=== PATIENT | male | born 1975 | race Hispanic/Latino ===

== ENCOUNTER 2020-07-24 14:59 | Outpatient (CLI) | payer OTHER | END 2020-07-24 15:00 | disposition home or self-care (01) | LOC: CT 14:59 | PROVIDERS: ATTEND Nurse Practitioner Family | DX: H53.9 Unspecified visual disturbance (principal); R51.9 Headache, unspecified; W19.XXXA Unspecified fall, initial encounter | CPT/HCPCS: 70450 ==

== ENCOUNTER 2025-04-20 17:17 | Emergency (ER) | payer OTHER ==
[2025-04-20] MEDS ORDERED: HYDROmorphone 0.5 MG/0.5 ML SYRINGE ONE ×2 (19:32→22:28)
== END 2025-04-20 23:02 | disposition short-term general hospital (02) ==
LOC: ERS 17:17
DX: S62.512B Displaced fracture of proximal phalanx of left thumb, initial encounter for open fracture (principal); I10 Essential (primary) hypertension; I25.10 Atherosclerotic heart disease of native coronary artery without angina pectoris; F17.210 Nicotine dependence, cigarettes, uncomplicated; Z79.51 Long term (current) use of inhaled steroids; Z79.899 Other long term (current) drug therapy; W20.8XXA Other cause of strike by thrown, projected or falling object, initial encounter; Y93.89 Activity, other specified
CPT/HCPCS: 90715; 96365; 96375; 96376; J1171; J2270